=== PATIENT | female | born 1980 | race Caucasian/White ===

== ENCOUNTER 2018-05-07 05:56 | Day surgery (SDC) | payer OTHER ==
[~2018-05-07] VITALS: Ht 160 cm; Wt 90.7 kg
[2018-05-07] MEDS ORDERED: SEVOFLURANE 250 ML BTL INH ONE (10:20)
[2018-05-07] MEDS ORDERED: MIDAZOLAM 2 MG/2 ML VIAL ONE (10:22)
[2018-05-07] MEDS ORDERED: fentaNYL 0.05 MG/ML VIAL ONE (10:22)
[2018-05-07] MEDS ORDERED: MEPERIDINE 50 MG/ML SYR ONE (10:22)
[2018-05-07] MEDS ORDERED: LACTATED RINGERS 1,000 ML IV SCH (10:43)
[2018-05-07] MEDS ORDERED: HYDROmorphone 1 MG/ML AMP IVP PRN (10:45)
[2018-05-07] MEDS ORDERED: IBUPROFEN 800 MG TAB PO PRN (10:45)
[2018-05-07] MEDS ORDERED: MORPHINE SULFATE 4 MG/ML SYR IM/IVP PRN (10:45)
[2018-05-07] MEDS ORDERED: MEPERIDINE 25 MG/ML SYR IVP PRN (10:45)
[2018-05-07] MEDS ORDERED: diphenhydrAMINE 50 MG/ML VIAL IVP PRN (10:45)
[2018-05-07] MEDS ORDERED: ONDANSETRON 4 MG/2 ML VIAL IVP PRN ×2 (10:45)
[2018-05-07] MEDS ORDERED: ACETAMINOPHEN/CODEINE 300/30MG 1 TAB PO PRN (10:45)
== END 2018-05-07 12:20 | disposition home or self-care (01) ==
LOC: MDS 05:56 → MMU 06:09 → MDS 12:20
PROVIDERS: ATTEND Obstetrics & Gynecology
DX: N87.9 Dysplasia of cervix uteri, unspecified (principal); E66.01 Morbid (severe) obesity due to excess calories; E78.5 Hyperlipidemia, unspecified; Z68.35 Body mass index [BMI] 35.0-35.9, adult
CPT/HCPCS: 57522; J2175; J2250; J3010; J7030; J7120